=== PATIENT | male | born 1940 | race Caucasian/White ===

== ENCOUNTER 2017-06-18 22:03 | Emergency (ER) | payer MEDICARE ==
[~2017-06-18] VITALS: Ht 177.8 cm; Wt 104.3 kg
[~2017-06-18 22:03] MED LIST: CLOPIDOGREL75 M1 PO; LOSARTAN POTAS100 MG PO; LOSARTAN POTASS25 MG PO
--- NOTE | 2017-06-18 22:25 | Emergency Room Report ---
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 N Clinical Suspician of Infection? N Mental Status: 1 - Regular (Normal Baseline) Sepsis Risk:Low Sepsis Risk Have you (or family members/close friends) recently traveled outside the [place]? N If Yes, where/when: Have you had exposure to infectious disease within the past month? N TB? Other? Specify: Source patient, RN notes reviewed, family, old records Exam Limitations no limitations Comment pt with slip fall in bathroom this pm with scalp lac but no loc and sig gardner and no neuro sx and denied neck pain Cardiac Chest Pain Chest pain indicative of cardiac No Timing/Duration this evening Severity moderate ALLERGIES Coded Allergies: No Known Allergies (09/30/15) Home Medications Reported Medications Losartan Potassium (Losartan 100MG) 100 MG PO DAILY History Medical History General CAD? No Angina: No KS: No Hypertension? Yes Hyperlipidemia? No CHF? No DVT? No PE? No COPD? No Asthma? No Anemia? No GERD? No Gastric ulcers? No GI Bleed? No Hernia? No Thyroid Problems? No Hypothyroidism? No CVA? No Seizures? No Diabetes? No Renal Insuffiency? No End Stage Renal Disease? No UTI? No Stones? No BPH? No GB Disease: No Nephritic Syndrome? No Asplenia? No Hepatitis? No Sickle Cell Disease? No Arthritis? No Migraines? No Cataracts? No Glaucoma? No MRSA? No HIV? No TB? No Anxiety? No Depression? No Cancer? No More? No Immunization Hx Ped.Immunizations UTD Yes DT/Tetanus Unknown Flu 2014-FSN Pneumonia Refuses Surgical Hx Previous Surgery?N Family History Family Hx Diabetes No CAD No Hypertension No Hyperlipidemia No Cancer Yes TB No Social History Smoking Hx Smoker: Never Smoker Tobacco: No Packs/day N/A Are you/the child exposed to second-hand smoke: No Alcohol Alcohol: No Drugs none Review of Systems All Other Systems Reviewed and Negative Constitutional denies fever Eyes denies drainage ENT denies: ear discharge, epistaxis, throat pain. Respiratory denies cough, denies shortness of breath, denies wheezing Cardiovascular denies chest pain, denies palpitations, denies syncope Gastrointestinal denies abdominal pain, denies diarrhea, denies vomiting Genitourinary denies: dysuria, frequency, hesitancy, hematuria. Musculoskeletal denies back pain, denies joint pain, denies joint swelling, denies neck pain Skin see HPI, denies rash, other Psychiatric/Neurological denies headache, denies seizure Physical Exam Vital Signs Vital Signs Date Time Temp Pulse Resp B/P Pulse O2 O2 Flow FiO2 Ox Delivery Rate 06/18 2210 98.5 62 18 162/86 98 - WBC >12,000 or <4,000 or 10% bands? 2 or more SIRS Criteria Met? B/P:162/86 MAP:111 Creatinine >2.0? UA output<0.5ml/kg/hr for 2 hrs? Platelet count >100,000? Lactate >2.0mmol/1? INR >1.2 or PTT > than 60 sec? Evidence of Organ Dysfunction? Provider documented clinical suspician of infection? N Sepsis Criteria Count: 0 Sepsis Risk: Low Sepsis Risk General Appearance no apparent distress Eye Exam - bilateral eye PERRL, bilateral eye EOMI Ear, Nose, Throat normal ENT inspection Neck supple Respiratory Status No: respiratory distress. Cardiovascular regular rate/rhythm Peripheral Pulses Pulses normal Yes Extremities normal inspection, pelvis stable Strength 4 Upper Ext (L), 4 Upper Ext (R), 4 Lower Ext (L), 4 Lower Ext (R) Neurologic alert, tool maintenance technician II-XII nml as tested, no motor/sensory deficits Glascow Coma Scale Glascow Coma Scale Response Value EYE response: 4 Spontaneously 4 MOTOR response: 6 OBEYS 6 VERBAL response: 5 Oriented & Converses 5 Total 15 Reflexes Reflexes normal No Mental status normal mood/affect Skin laceration(s), 2 cm scalp lac Medical Decision Making LABS/Meds/Orders Pt receiving controlled substance in ED? No Results/Orders Current Medication Orders Sig/Natasha Start time Last Medication Dose Route Stop Time Status Admin Diphtheria/Pertussis/ 0 .STK-MED ONE 06/18 2247 DC Tetanus Vacc IM Diphtheria/Pertussis/ 0.5 ML ONCE ONE 06/18 2245 DC Tetanus Vacc IM 06/18 2246 Lidocaine HCl 0 .STK-MED ONE 11/27 2221 DC .ROUTE Procedures Laceration/Wound Repair Laceration/Wound Repair Risks/benefits discussed with pt/guardian? Yes Tetanus status not up to date Wound Location head Wound Length (cm) 2 Wound's Depth, Shape sucutaneous tissue Wound Explored no FB identified Risk of retained FB explained to pt/guardian? Yes Irrigated w/ Saline (ccs) 0 Wound Prep Hibiclens, Saline Anesthesia 1% Lidocaine, Local Volume Anesthetic (ccs) 3 Wound Debrided none Wound Repaired With mayi Layer Closure No Total Number Sutures 5 Sterile Dressing Applied No Splint Applied No Sling Applied No Departure Departure Time of Disposition 2238 Disposition DC Home or Self Care(routine) Clinical Impression Primary Impression: Scalp laceration Qualifiers: Encounter type: initial encounter Qualified Code: S01.01XA - Laceration without foreign body of scalp, initial encounter Condition STABLE Referrals Jimmy Hanley MD (Family) Patient Instructions DI for Laceration Repair -- [place] Additional Instructions mayi out 10 days and recheck if any problems Discharge Counseling Counseled pt/family regarding diagnosis, follow up needs ED Critical Care Critical Care No at [id number]
--- OUTSIDE RECORDS SUMMARY | 2017-06-18 22:27 | External Medical Summary Rpt | CCD ---
Author Author , NIDA ALVA Address Unknown Phone [email or web address] Purpose Continuity of Care Document - through 2016 Problems Code Diagnosis DOS Provider Status G45.9 TRANSIENT CEREBRAL ISCHEMIC ATTACK, UNSPECIFIED
--- OUTSIDE RECORDS SUMMARY | 2017-06-18 22:27 | External Medical Summary Rpt | CCD ---
Author Author [employer] Organization [employer] Address Unknown Phone Unavailable Purpose Continuity of Care Document - through 2016
--- OUTSIDE RECORDS SUMMARY | 2017-06-18 22:27 | External Medical Summary Rpt | CCD ---
Author Author , NIDA ALVA Address Unknown Phone [email or web address] Purpose Continuity of Care Document - through 2016 Problems Code Diagnosis DOS Provider Status G45.9 TRANSIENT CEREBRAL ISCHEMIC ATTACK, UNSPECIFIED
--- OUTSIDE RECORDS SUMMARY | 2017-06-18 22:28 | External Medical Summary Rpt | CCD ---
Author Author , JOSS ALVA Address Unknown Phone [email or web address] Immunization Name Date Rout CVX Reac Dose Comm Prov Is Faci e tion ent ider Refu lity Give sed n Infl 11-0 Intr 135 0.5 Hist D049 No D049 uenz 3-20 amus mL oric 01 01 a, 17 cula al High r Info rmat Dose ion - Sour ce Unsp ecif ied
--- OUTSIDE RECORDS SUMMARY | 2017-06-18 22:28 | External Medical Summary Rpt ---
Author Author NIDA Munroe, [employer] Organization [employer] Address Unknown Phone Unavailable
--- OUTSIDE RECORDS SUMMARY | 2017-06-18 22:28 | External Medical Summary Rpt | CCD ---
Author Author , JOSS ALVA Address Unknown Phone [email or web address] Immunization Name Date Rout CVX Reac Dose Comm Prov Is Faci e tion ent ider Refu lity Give sed n Infl 11-0 Intr 135 0.5 Hist D049 No D049 uenz 3-20 amus mL oric 01 01 a, 17 cula al High r Info rmat Dose ion - Sour ce Unsp ecif ied
[2017-06-18 22:55] VITALS: BP 162/86
== END 2017-06-18 22:56 | disposition home or self-care (01) ==
LOC: ER 22:03
PROC: 0HQ0XZZ Repair Scalp Skin, External Approach (ICD-10-PCS; principal; 2017-06-18)
DX: S01.01XA Laceration without foreign body of scalp, initial encounter (principal); Z23 Encounter for immunization; I10 Essential (primary) hypertension; W18.2XXA Fall in (into) shower or empty bathtub, initial encounter; Y92.012 Bathroom of single-family (private) house as the place of occurrence of the external cause